=== PATIENT | male | born 1980 | race Caucasian/White ===

== ENCOUNTER 2018-04-19 04:20 | Emergency (ER) | payer BC, OTHER ==
[2018-04-19] MEDS: DEXAMETHASONE 10 MG/ML 1 ML INJ IM (05:09)
[2018-04-19] MEDS: KETOROLAC 30 MG INJ IM (05:09)
[2018-04-19] MEDS: HYDROCODONE/APAP (5/325) TAB PO (05:09)
== END 2018-04-19 05:57 | disposition home or self-care (01) ==
LOC: FTE 04:20
DX: M54.12 Radiculopathy, cervical region (principal)
CPT/HCPCS: 29125; 96372; 99284-25